=== PATIENT | male | born 1970 | race Caucasian/White ===

== ENCOUNTER → 2020-06-19 | Day surgery (SDC) | payer OTHER ==
[~2020-06-19] MED LIST: BUPR450T3 PO; CITA20TA6 PO; HYDROmorphone 2 MG/ML VIAL IVP PRN; IV RINGERS,LACTATED 1000ML 1,000 ML IV SCH; LIDOCAINE 2% PF 5 ML VIAL. ONE; MORPHINE SULFATE 2 MG/ML VIAL. IVP PRN; PANT20TA2 PO; PROCHLORPERAZINE 10 MG/2 ML VIAL. IVP PRN; PROPOFOL 10 MG/ML (20ML) VIAL. IV ONE; RIZA10TA PO; TRAZ150T49 PO; fentaNYL PF VIAL 100 MCG/2 ML VIAL IVP PRN
[2020-06-19 13:35] VITALS: BP 122/81
--- NOTE | 2020-06-25 11:25 | PATHOLOGY ---
[facility] Accession Number: [id number] . 01 Material submitted: . esophagus - ESOPHAGITIS BIOPSY . 01 Clinical history: . PRE OP: ABDOMINAL PAIN/HEARTBURN/GERD/NAUSEA AND VOMITING EGD POST OP: ESOPHAGITIS . 02 Diagnosis: Esophagus, "esophagitis", biopsy: - Esophageal squamous mucosa with features of reflux esophagitis. - Negative for intestinal metaplasia, dysplasia, and malignancy. . (MLK:mm; 06/22/2020) [facility] 06/25/2020 1021 Local . 02 Electronically signed: . Rico Kearns MD, Pathologist NPI- [id number] . 01 Gross description: . The specimen is received in formalin, labeled "Onel Phelan", "esophagitis biopsy". Received are multiple segments of pale white soft tissue ranging in size from 0.3 cm to 0.5 cm. The specimen is entirely submitted in cassette A1.(SNA; 06/21/2020) [facility] 06/21/2020 0905 Local . 02 Pathologist provided ICD-10: R10.9, R12, K21.00, R11.2 . 02 CPT . 262183 Specimen Comment: A courtesy copy of this report has been sent to [phone], [phone] Specimen Comment: [id number] Specimen Comment: Report sent to DR SMALLS / DR TOMPKINS Performed at: 01 [facility] [address], [place] [id number] MD Tapan Reese MD Phone: [phone] Performed at: 02 [facility] [address] [place], [place] [id number] MD Arthur Merrill MD Phone: [phone]
== END | disposition home or self-care (01) ==
LOC: SURG 11:20
PROVIDERS: ATTEND Internal Medicine Gastroenterology
DX: R12 Heartburn (principal); K21.00 Gastro-esophageal reflux disease with esophagitis, without bleeding; K31.89 Other diseases of stomach and duodenum; K44.9 Diaphragmatic hernia without obstruction or gangrene; G47.30 Sleep apnea, unspecified; F32.9 Major depressive disorder, single episode, unspecified; Z20.822 Contact with and (suspected) exposure to COVID-19; Z79.899 Other long term (current) drug therapy; Z98.890 Other specified postprocedural states
CPT/HCPCS: 43239; 87426; J2704; 88305